=== PATIENT | male | born 1975 | race African-American/Black ===

== ENCOUNTER 2018-03-13 00:48 | Emergency (ER) | payer SELFPAY ==
[2018-03-13] MEDS ORDERED: EPINEPHrine 1 MG/ML AMP ONE (01:29)
[2018-03-13] MEDS ORDERED: diphenhydrAMINE 50 MG/ML VIAL ONE (01:29)
[2018-03-13] MEDS ORDERED: methylPREDNISolone Sod Succ/PF 125 MG/2 ML VIAL ONE (01:54)
[2018-03-13] MEDS ORDERED: Sterile Water 0 ML ONE (01:54)
[2018-03-13] MEDS ORDERED: Amlodipine 5 MG TAB ONE (04:10)
== END 2018-03-13 04:30 | disposition home or self-care (01) ==
LOC: MADERS 00:48
DX: T78.1XXA Other adverse food reactions, not elsewhere classified, initial encounter (principal); R21 Rash and other nonspecific skin eruption; I10 Essential (primary) hypertension; F17.210 Nicotine dependence, cigarettes, uncomplicated; X58.XXXA Exposure to other specified factors, initial encounter
CPT/HCPCS: 94760; 96372; 96374; 96375; A4216; J0171; J1200; J2930

== ENCOUNTER 2025-06-20 11:27 | Emergency (ER) | payer OTHER ==
[2025-06-20] MEDS ORDERED: HYDROcodone/Acetaminophen 10/325 mg Tablet ONE (12:30)
== END 2025-06-20 12:57 | disposition home or self-care (01) ==
LOC: MADERS 11:27
DX: M10.9 Gout, unspecified (principal); I11.0 Hypertensive heart disease with heart failure; I50.9 Heart failure, unspecified; F17.210 Nicotine dependence, cigarettes, uncomplicated; Z79.899 Other long term (current) drug therapy
CPT/HCPCS: 36415; 84550; 96372; 99283; J2919